=== PATIENT | male | born 2000 | race Hispanic/Latino ===

== ENCOUNTER 2020-09-28 12:07 | Emergency (ER) | payer SELFPAY ==
[2020-09-28 12:11] VITALS: BP 137/81; PULSE 102; RESP 16; TEMP 37.2; O2SAT 99
[2020-09-28 12:16] VITALS: BP 137/81; PULSE 102; RESP 16; TEMP 37.2; O2SAT 99
--- NOTE | 2020-09-28 12:30 | ED.URI ---
HPI - URI/Sore Throat General Chief Complaint: Upper Respiratory Infection Stated Complaint: sore throat Source: patient Mode of arrival: ambulatory Limitations: no limitations History of Present Illness HPI Narrative: Patient is a 20-year-old male who presents complaining of sore throat x5 days. He denies fever, nausea, vomiting, diarrhea or headache. He denies cough or congestion. Patient is not vaccinated for Covid at this time. 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 He denies significant medical history, denies significant surgical history. He denies all other complaints at this time. MD elicited complaint: sore throat Related Data Home Medications Medication Instructions Recorded Confirmed No Home Medications 09/28/20 09/28/20 Allergies Allergy/AdvReac Type Severity Reaction Status Date / Time No Known Allergies Allergy Verified 09/28/20 12:15 Review of Systems Review of Systems: CONSTITUTIONAL: Denies fever, chills, or sweats. EYES: Denies visual changes, redness, or discharge. ENT: Reports sore throat CARDIOVASCULAR: Denies chest pain, palpitations, or edema. RESPIRATORY: Denies cough or dyspnea. GASTROINTESTINAL: Denies abdominal pain, nausea, vomiting, or diarrhea. GENITOURINARY: Denies dysuria or hematuria. SKIN: Denies rash or itching. MUSCULOSKELETAL: Denies back pain, joint pain, or myalgia. NEUROLOGIC: Denies headache, numbness, dizziness, or weakness. PSYCHIATRIC: Denies anxiety or depression. PMFSH Past Medical History Medical History No significant past medical history Surgical History Surgical History No significant past surgical history Family History Family History (Updated 09/28/20 @ 12:31 by JORDI Altamirano) Other No significant family history Social History Social History (Updated 09/28/20 @ 12:32 by JORDI Altamirano) Smoking status: Never smoker Alcohol intake: current Alcohol use details: Occasional Substance use: never Living arrangements: with roommate(s) Occupation/Education: occupation Exam Narrative: GENERAL: Well-appearing, well-nourished, and in no acute distress. HEAD: Normocephalic, atraumatic. EYES: EOMI. No redness or drainage. Conjunctiva are normal. ENT: Mucous membranes pink and moist. Nares clear. No rhinorrhea. Throat mild erythema without edema or exudate. Uvula midline. NECK: AROM. Supple. No lymphadenopathy. CHEST: No respiratory distress. HEART: Regular rate and rhythm. EXTREMITIES: Normal range of motion. No edema. SKIN: Warm, dry, no rash. NEURO: No focal deficits. Alert and oriented x3. Gait steady. PSYCH: Normal affect. No signs of depression or anxiety. Course Vital Signs Vital signs: Vital Signs Temperature 37.2 C 09/28/20 12:11 Pulse Rate 102 H 09/28/20 12:11 Respiratory Rate 16 09/28/20 12:11 Blood Pressure 137/81 09/28/20 12:11 Pulse Oximetry 99 09/28/20 12:11 Temperature 37.2 C 09/28/20 12:16 Pulse Rate 102 H 09/28/20 12:16 Respiratory Rate 16 09/28/20 12:16 Blood Pressure 137/81 09/28/20 12:16 Pulse Oximetry 99 09/28/20 12:16 Reviewed. Patient has been instructed to follow-up with his PCP regarding his blood pressure. MDM - URI/Sore Throat MDM Narrative Medical decision making narrative: Patient's rapid Covid negative at this time. Patient most likely has viral illness. Discussed quarantine with patient and visitor. Patient agrees with plan of care. Patient is stable for discharge to home with outpatient follow-up as needed. Differential Diagnosis Differential diagnosis: Likely upper respiratory infection, sinusitis, viral infection, bronchitis and pharyngitis Lab Data Lab results narrative: Rapid Covid negative Critical Care Time Critical Care Time Critical Care Time: No Discharge Plan Discharge Clinical Imp
== END 2020-09-28 13:16 | disposition home or self-care (01) ==
PROVIDERS: Emergency Provider Nurse Practitioner
DX: J06.9 Acute upper respiratory infection, unspecified (principal); Z20.822 Contact with and (suspected) exposure to COVID-19
CPT/HCPCS: 87426; 99213; C9803; G0463